=== PATIENT | male | born 1990 | race Caucasian/White ===

== ENCOUNTER 2020-01-15 23:06 | Inpatient (IN) | payer BC ==
[2020-01-15] MEDS ORDERED: MORPHINE 4 MG/ML SYR ONE (23:29)
[2020-01-15 23:45] LABS: Absolute Lymphocytes (CBC) 1.8 K/uL (0.7-4.9); Basophils % 0.7 % (0-1.3); Hematocrit 39.6 % (39.6-49.0); Lymphocytes % 15.9 % (15.3-44.8); MPV 7.3 fL (7.6-11.3); RBC Red Blood Cell Count 4.47 M/uL (4.33-5.43)
[2020-01-16 00:03] LABS: BUN Blood Urea Nitrogen 10 mg/dL (7-18); Bicarbonate 24 mmol/L (21-32); Glucose Level 114 mg/dL (74-106); Potassium 4.1 mmol/L (3.5-5.1); Sodium Level 139 mmol/L (136-145)
[2020-01-16 00:07] LABS: Protime INR 0.99
[2020-01-16] MEDS ORDERED: MORPHINE 4 MG/ML SYR ONE (00:29)
[2020-01-16] MEDS ORDERED: NA CHLORIDE 0.9% 500 ML ONE (00:35)
[2020-01-16] MEDS ORDERED: VANCOMYCIN 1 GM/VIAL ONE (00:35)
[2020-01-16] MEDS ORDERED: NA CHLORIDE 0.9% 250 ML ONE (00:36)
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
[2020-01-16] MEDS ORDERED: MEPERIDINE HCL 50 MG/ML ONE (03:08)
[2020-01-16] MEDS ORDERED: MORPHINE 2 MG/ML SYR IV PRN (04:42)
[2020-01-16] MEDS: NA CHLORIDE 0.9% 1,000 ML IV SCH ×3 (04:56→23:19)
[2020-01-16] MEDS ORDERED: CEFTRIAXONE/SWI 1gm 1 GM/10 ML SYR IV SCH (05:00)
[2020-01-16] MEDS ORDERED: CLINDAMYCIN IV 150 MG/ML (6 mL) VIAL ONE (05:59)
[2020-01-16] MEDS ORDERED: NA CHLORIDE 0.9% 50 ML ONE (06:00)
[2020-01-16] MEDS: CLINDAMYCIN INJ 600 MG in NA CHLORIDE 0.9% 50 ML IV SCH ×2 (06:00→13:42)
[2020-01-16 08:05] VITALS: BMI 22.1
[2020-01-16] MEDS: HYDROMORPHONE HCL 1 MG/ML INJ IV PRN ×4 (08:58→23:12)
[2020-01-16 10:49] LABS: Urine Appearance CLEAR; Urine Bilirubin NEGATIVE (NEG); Urine Blood NEGATIVE (NEG); Urine Color YELLOW; Urine Glucose NEGATIVE (NEG); Urine Protein NEGATIVE (NEG); Urine Specific Gravity 1.025 (1.005-1.030); Urine Urobilinogen 0.2 mg/dL (0.2-1.0)
[2020-01-16 10:57] LABS: Urine Microscopic Reflex NO UMIC
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
[2020-01-16] MEDS ORDERED: Ringers Lactate 1,000 ML IV ONE (12:44)
[2020-01-16] MEDS ORDERED: MIDAZOLAM HCL 2 MG/2 ML INJ ONE (13:40)
[2020-01-16] MEDS ORDERED: propofoL 200 MG/20 ML VIAL IV ONE (13:40)
[2020-01-16] MEDS ORDERED: LIDOCAINE 1% MPF 5 ML VIAL ONE (13:40)
[2020-01-16] MEDS ORDERED: FENTANYL CITR 100 MCG/2 ML ONE (13:40)
[2020-01-16] MEDS ORDERED: dexAMETHasone 10 MG/ML VIAL ONE (14:07)
[2020-01-16] MEDS ORDERED: KETOROLAC 30 MG/ML INJ ONE (14:07)
[2020-01-16] MEDS ORDERED: ONDANSETRON 4 MG/2 ML VIAL ONE (14:08)
[2020-01-16] MEDS: HYDROMORPHONE HCL 1 MG/ML INJ ONE ×2 (14:58→15:02)
[2020-01-16] MEDS ORDERED: PROMETHAZINE INJ 25 MG/ML AMP ONE (15:07)
[2020-01-16] MEDS ORDERED: HYDROMORPHONE HCL 1 MG/ML INJ ONE (15:15)
[2020-01-16 15:20] VITALS: O2SAT 97
[2020-01-16] MEDS ORDERED: MEPERIDINE HCL 25 MG/ML SYR ONE (15:20)
[2020-01-16] MEDS: CEFEPIME/SWI 2gm 2 GM/20 ML SYR IV SCH (17:08)
[2020-01-16] MEDS: VANCOMYCIN 1.25 GM in NA CHLORIDE 0.9% 250 ML IVPB SCH (17:08)
--- NOTE | 2020-01-16 17:08 | RAD REPORT ---
EXAM DESCRIPTION: US - Extremity Venous Uni Ltd - 01/16/2020 4:51 pm CLINICAL HISTORY: LEG Leg swelling and edema. COMPARISON: Lower Ext Angio dated 01/15/2020 FINDINGS: Left lower extremity venous system was interrogated with Doppler technique. Normal flow, c ompressibility and augmentation was noted. There is no DVT present. IMPRESSION: No evidence of left lower extremity deep venous thrombosis.
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
[2020-01-16] MEDS: HYDROCODONE/APAP 10/325 TAB PO PRN (19:24)
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
[2020-01-17] MEDS ORDERED: TRAZODONE 50 MG TABLET PO ONE (00:27)
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
[2020-01-17] MEDS: HYDROMORPHONE HCL 1 MG/ML INJ IV PRN ×4 (02:11→12:01)
[2020-01-17] MEDS: CEFEPIME/SWI 2gm 2 GM/20 ML SYR IV SCH (05:00)
[2020-01-17] MEDS: NA CHLORIDE 0.9% 1,000 ML IV SCH (05:00)
[2020-01-17] MEDS: VANCOMYCIN 1.25 GM in NA CHLORIDE 0.9% 250 ML IVPB SCH (05:02)
[2020-01-17] MEDS: HYDROCODONE/APAP 10/325 TAB PO PRN ×2 (06:06→13:08)
[2020-01-17 06:21] LABS: Absolute Lymphocytes (CBC) 1.7 K/uL (0.7-4.9); Basophils % 0.3 % (0-1.3); Hematocrit 36.6 % (39.6-49.0); Lymphocytes % 12.7 % (15.3-44.8); MPV 7.3 fL (7.6-11.3); RBC Red Blood Cell Count 4.12 M/uL (4.33-5.43)
[2020-01-17] MEDS ORDERED: PANTOPRAZOLE 40MG TABLET PO SCH (06:30)
[2020-01-17 06:46] LABS: BUN Blood Urea Nitrogen 15 mg/dL (7-18); Bicarbonate 29 mmol/L (21-32); Glucose Level 122 mg/dL (74-106); Magnesium 2.1 mg/dL (1.8-2.4); Phosphorus 4.1 mg/dL (2.5-4.9); Potassium 4.1 mmol/L (3.5-5.1); Sodium Level 141 mmol/L (136-145)
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
[2020-01-17] MEDS ORDERED: HOME MED 1 EA UNK (Omeprazole [Omeprazole] 20 MG) PO SCH (09:00)
[2020-01-17] MEDS ORDERED: SERTRALINE HCL 50 MG TAB PO SCH (09:00)
[2020-01-17 12:20] VITALS: BP 177/79; TEMP 97.3
== END 2020-01-17 13:14 | disposition home health service (06) | DRG 572 ==
LOC: ER 23:06 → ERHOLD 01-16 02:39 → 2ND 01-16 03:46
PROVIDERS: ADMIT Internal Medicine; ATTEND Family Medicine
PROC: 0JBP0ZZ Excision of Left Lower Leg Subcutaneous Tissue and Fascia, Open Approach (ICD-10-PCS; principal; 2020-01-16 13:30)
DX: S81.802A Unspecified open wound, left lower leg, initial encounter (principal); W34.00XA Accidental discharge from unspecified firearms or gun, initial encounter; Z20.828 Contact with and (suspected) exposure to other viral communicable diseases
CPT/HCPCS: 36415; 73706; 80048; 81003; 83735; 84100; 84145; 85025; 85610; 85730; 87040; 87070; 87205; 88304; 93926; 93971; 99285; J0692; J0696; J1100; J1170; J2175; J2250; J2270; J2405; J2550; J2704; J3010; J7030; J7040; J7120; Q9967; U0002

== ENCOUNTER 2020-02-11 08:10 | Day surgery (SDC) | payer BC ==
[2020-02-11] MEDS ORDERED: Ringers Lactate 1,000 ML IV ONE (08:30)
[2020-02-11] MEDS ORDERED: MIDAZOLAM HCL 2 MG/2 ML INJ ONE ×2 (08:49→08:57)
[2020-02-11] MEDS: CEFAZOLIN/SWI 1gm 1 GM/10 ML SYR ONE ×2 (08:55→09:13)
[2020-02-11] MEDS ORDERED: MINERAL OIL, LITE 10 ML VIAL ONE (08:57)
[2020-02-11] MEDS ORDERED: propofoL 200 MG/20 ML VIAL IV ONE (08:57)
[2020-02-11] MEDS ORDERED: FENTANYL CITR 100 MCG/2 ML ONE (08:57)
[2020-02-11] MEDS ORDERED: LIDOCAINE 1% MPF 5 ML VIAL ONE (08:57)
[2020-02-11] MEDS ORDERED: dexAMETHasone 10 MG/ML VIAL ONE (09:07)
[2020-02-11] MEDS ORDERED: KETOROLAC 30 MG/ML INJ ONE (09:07)
--- OUTSIDE RECORDS SUMMARY | 2020-02-11 09:15 | XMS REPORT | Continuity of Care Document ---
:1990 Author Organization [facility] Care Team Providers Name Role Phone [facility] Unavailable Un available Problems Problem Status Onset Classification Date Comments Sourc e Date Reported ANXIETY STATE, Active Condition 10/30/2014 M edical UNSPECIFIED 5 Group ESOPHAGEAL Active Condition 10/30/2014 Medic al REFLUX 4 Group NICOTINE Active Condition 10/30/2014 Medica l ADDICTION 4 Group Medications Medication Details Route Status Patient Ordering Order Source Instructions Provider Date ESCITALOPRAM 1 tablet Active OXALATE 10 MG daily for 015 Medical TABS anxiety Group CLONIDINE HCL 1 tablet up Active 0.1 MG TABS to three 015 Medical times a day Group as needed for panic or for insomnia PANTOPRAZOLE one po No Longer SODIUM 40 MG daily Active 014 Medical TBEC Group Allergies, Adverse Reactions, Alerts No Known Medication Allergies Immunizations No Data Provided for This Section Results No Data Provided for This Section Pathology Reports No Data Provided for This Section Diagnostic Reports No Data Provided for This Section Consultation Notes No Data Provided for This Section Discharge Summaries No Data Provided for This Section History and Physicals No Data Provided for This Section Vital Signs Vital Sign Value Date Comments Source Temperature Oral (F) 97.4 F 10/30/2014 [facility] Systolic (mm Hg) 140 10/30/2014 Medical Group Diastolic (mm Hg) 67 10/30/2014 Medical Group Heart Rate 94 10/30/2014 Medical Grou p Weight 158 10/30/2014 Medical Grou p Height 69 01/22/2014 Medical Grou p Weight 146 01/22/2014 Medical Grou p Temperature Oral (F) 96.9 F 01/22/2014 [facility] Systolic (mm Hg) 124 01/22/2014 Medical Group Diastolic (mm Hg) 63 01/22/2014 Medical Group Heart Rate 90 01/22/2014 Medical Grou p Encounters Location Location Encounter Encounter Reason Attending ADM PR Stat Source Details Type Number For Provider Date Date Visit [facility] Office [id number] Kelsea 10/30 10/30 Charanjit Visit 0 , Medical [facility] Procedures Procedure Code Date Perfomer Comments Source smoking/tobacco 14 01/22/2014 yes Medica l cessation, patient Group education and counseling Assessment and Plan No Data Provided for This Section Plan of Care No Data Provided for This Section Social History No Data Provided for This Section Family History No Data Provided for This Section Advance Directives No Data Provided for This Section Functional Status No Data Provided for This Section
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
[2020-02-11] MEDS ORDERED: Mastisol Adhesive Liq ONE (09:35)
[2020-02-11] MEDS ORDERED: ONDANSETRON 4 MG/2 ML VIAL ONE (09:35)
[2020-02-11] MEDS: HYDROMORPHONE HCL 1 MG/ML INJ ONE ×2 (09:45→09:50)
[2020-02-11] MEDS ORDERED: PROMETHAZINE INJ 25 MG/ML AMP ONE (09:55)
[2020-02-11] MEDS ORDERED: HYDROMORPHONE HCL 1 MG/ML INJ ONE ×2 (10:02→10:03)
[2020-02-11] MEDS ORDERED: CODEINE 30MG/APAP 300MG TAB ONE (11:16)
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
[2020-02-11 11:29] VITALS: BP 115/63; TEMP 97.6; O2SAT 100
== END 2020-02-11 11:30 | disposition home or self-care (01) ==
LOC: OR 08:10
PROVIDERS: ATTEND Specialist
PROC: 0HBJXZZ Excision of Left Upper Leg Skin, External Approach (ICD-10-PCS; 2020-02-11)
PROC: 0KXT0ZZ Transfer Left Lower Leg Muscle, Open Approach (ICD-10-PCS; principal; 2020-02-11 09:00)
PROC: 0HRLX74 Replacement of Left Lower Leg Skin with Autologous Tissue Substitute, Partial Thickness, External Approach (ICD-10-PCS; 2020-02-11 09:00)
DX: S81.802A Unspecified open wound, left lower leg, initial encounter (principal); F32.9 Major depressive disorder, single episode, unspecified; Z11.59 Encounter for screening for other viral diseases
CPT/HCPCS: 15738; 15100; U0002; J2704; J2550; J2250 ×2; J3010; J1100; J1170; J0690; J7120; J2405